=== PATIENT | male | born 1945 | race Caucasian/White ===

== ENCOUNTER → 2017-11-03 | Day surgery (SDC) | payer MEDICARE, OTHER ==
[2017-10-31 13:05] LABS: BASOPHILS % 0.4 % (0.0-1.0); EOSINOPHILS # (AUTO) 0.2 (0.0-0.4); EOSINOPHILS % 1.7 % (0.0-6.0); HEMATOCRIT 44.6 % (38.2-49.6); HEMOGLOBIN 14.6 g/dL (14.0-18.0); LYMPHOCYTES # (AUTO) 2.4 (1.0-3.2); LYMPHOCYTES % 25.5 % (18.0-39.1); MEAN CORPUSCULAR HEMOGLOBIN 29.8 pg (28-32); MEAN CORPUSCULAR HGB CONC 32.7 g/dL (31-35); MONOCYTES % 10.4 % (4.4-11.3); NEUTROPHILS # (AUTO) 5.8 (2.1-6.9); NEUTROPHILS % 61.5 % (38.7-80.0); PLATELET COUNT 196 x10e3/uL (140-360)
[~2017-11-03] MED LIST: ADVAIR 250-501 EACH INH; ADVICOR PO; BUPIVACAINE HCL 0.5% INJ 30 ML VIAL INJ ONE; CEFAZOLIN SOD 1 GM VIAL ONE; CELEBREX200 MG PO; ELMIRON100 MG PO; FENTANYL CITRATE/PF 100MCG/2 ML INJ ONE; FLOMAX0.4 MG PO; FLONASE; HYDROCODON-ACE1 EAC8 PO; LIDOCAINE 1% W/EPINEPHRINE 20 ML VIAL ONE; LIDOCAINE HCL 1% LOCAL INJ 20 ML VIAL ONE; LIDOCAINE HCL 2% LOCAL INJ 5 ML SDV VIAL INJ ONE; MIDAZOLAM HCL 2 MG/2 ML VIAL ONE; MUPIROCIN 2% OINT 22 GM TUBE ONE; PLAVIX75 MG PO; PRINZIDE 20-121 EACH PO; PROPOFOL IV EMULSION 10 MG/ML 20 ML VIAL ONE; SINGULAIR10 MG PO; TOPROL XL50 MG PO; ZOFRAN ODT4 MG SL
--- OUTSIDE RECORDS SUMMARY | 2017-11-03 05:33 | XMS REPORT | Clinical Summary ---
Author Author [facility] Address Unknown Phone Unavailable Care Team Providers Care Receivable Executive Name Role Phone Aileen Engel MD PCP Allergies No Known Allergies Current Medications Prescription Sig. Disp. Refills Start End Date Status Date clopidogrel (PLAVIX) 75 1 tablet daily. 08/16/19 Active mg tablet 18 lisinopril-hydrochlorothi 1 tablet daily. 08/16/19 Active azide 18 (PRINZIDE,ZESTORETIC) 20-12.5 mg per tablet TOPROL XL 50 mg 24 hr 1 tablet daily. 08/16/19 Active tablet 18 celecoxib (CeleBREX) 200 1 capsule daily. 08/16/19 Active MG capsule 18 montelukast (SINGULAIR) 1 tablet daily. 08/16/19 Active 10 mg tablet 18 fluticasone (FLONASE) 50 1 spray 2 (two) times a 08/17/19 Active mcg/actuation nasal spray day. 18 colestipol (COLESTID) 1 1 tablet 2 (two) times a 08/06/19 Active gram tablet day. 18 ELMIRON 100 mg capsule 1 capsule 2 (two) times a 10/02/19 Active day. 18 atorvastatin (LIPITOR) 10 1 tablet daily. 08/16/19 Active MG tablet 18 TRICOR 145 mg tablet 1 tablet daily. 08/16/19 Active 18 XOPENEX HFA 45 2 puffs 2 (two) times a 09/14/19 Active mcg/actuation inhaler day. 18 aspirin (ECOTRIN) 81 MG Take 81 mg by mouth Active enteric coated tablet daily. Bifidobacterium infantis Take 1 tablet by mouth Active (ALIGN ORAL) daily. acetaminophen (TYLENOL) Take 500 mg by mouth as Active 500 MG tablet needed for mild pain. Active Problems Problem Noted Date Essential tremor 10/07/2017 Heart disease 10/07/2017 Encounters Date Type Specialty Care Team Description 10/07/2017 Office Visit Neurology Pat Britton MD Essential tremor (Primary Dx); Heart disease 10/07/2017 Orders Only Neurology Gina Ham MA Essential tremor (Primary Dx) 11/06/2016 Hospital Radiology Flavia Engel MD Back pain, unspecified Encounter back location, unspecified back pain laterality, unspecified chronicity 11/03/2016 Transcribe Physical Therapy Flavia Engel MD Orders 11/02/2016 Procedure Pass Radiology 11/02/2016 Transcribe Physical Therapy Flavia Engel MD Low back pain, Orders unspecified back pain laterality, unspecified chronicity, with sciatica presence unspecified (Primary Dx) 11/02/2016 Transcribe Access Flavia Engel MD Back pain, unspecified Orders back location, unspecified back pain laterality, unspecified chronicity (Primary Dx) after 11/02/2016 Family History Medical History Relation Name Comments Heart disease Father Hypertension Father Tremor Father Diabetes Mother Hypertension Mother Parkinsonism Paternal Grandmother Relation Name Status Comments Father (Age 61) Mother (Age 71) Paternal Grandmother Social History Tobacco Use Types Packs/Day Years Used Date Former Smoker Quit: 1999 Smokeless Tobacco: Never Used Alcohol Use Drinks/Week oz/Week Comments No Sex Assigned at Date Recorded Not on file Last Filed Vital Signs Vital Sign Reading Time Taken Blood Pressure 127/85 10/07/2017 8:31 AM CDT Pulse 67 10/07/2017 8:31 AM CDT Temperature - - Respiratory Rate - - Oxygen Saturation - - Inhaled Oxygen - - Concentration Weight 121 kg (266 lb) 10/07/2017 8:31 AM CDT Height 177.8 cm (5' 10") 10/07/2017 8:31 AM CDT Body Mass Index 38.17 10/07/2017 8:31 AM CDT Plan of Treatment Health Maintenance Due Date Last Done Comments COLON CANCER SCREENING 12/06/1993 SHINGRIX VACCINE (#1) 12/06/1993 ZOSTER VACCINE 2003 PNEUMOCOCCAL 12/06/2008 POLYSACCHARIDE VACCINE AGE 65 AND OVER PNEUMOCOCCAL-13 12/06/2008 INFLUENZA VACCINE 01/18/2018 Results * MRI Lumbar Spine Wo Contrast (11/06/2016 3:24 PM) Specimen Performing Laboratory [facility] [address] [place] [address] Narrative EXAMINATION: MRI LUMBAR SPINE WO CONTRAST CLINICAL HISTORY: M54.9 Dorsalgiaunspecified, M54.9 COMPARISON:None TECHNIQUE: Multiplanar multisequence noncontrast enhanced examination was performed of the Lumbar spine. FINDINGS: There is no acute osseous abnormality. There is no evidence of fracture. A Schmorl's node is noted in the inferior L3 endplate with minimal edema. There is diffuse fusiform aneurysmal dilatation of the aorta measuring up to 4.8 cm. The distal spinal cord and conus are intact. There is grade 1 anterolisthesis of L4. There is diffuse degenerative endplate changes with Schmorl's nodes at all levels from T10 through L3. Axial images through the disc spaces demonstrate the following: L1-L2: There is complete loss of disc height. There is diffuse disc bulge with mild to moderate lateral recess narrowing and mild canal stenosis. There is minimal narrowing of the inferior foramina. L2-L3: There is diffuse disc bulge with minimal narrowing of the thecal sac and lateral recesses. The foramina are patent. L3-L4: There is diffuse disc bulge and facet hypertrophy with mild canal and mild to moderate lateral recess narrowing. Facet spurring and this osteophyte complex results in mild bilateral foraminal narrowing. L4-L5: There is grade 1 anterolisthesis of L4 with diffuse disc bulge and significant facet and ligament flavum hypertrophy. There is very severe left lateral recess narrowing and slightly less severe right lateral recess and canal stenosis. Correlate for encroachment of the descending left L5 nerve root. Facet spurring and this osteophyte complex results in at least mild to moderate foraminal stenosis, bilaterally. L5-S1: There is disc bulge with minimal effacement of the thecal sac without significant stenosis. There is mild indentation into the inferior neural foramina without stenosis. No significant posterior disc disease, spinal canal or neural foraminal stenosis at other visualized levels. IMPRESSION: There is multilevel spondylosis most prominent at L4-L5 where there is significant canal and bilateral lateral recess narrowing, most prominent on the left. Correlate for encroachment of the cauda equina nerve roots, especially the descending left L5 nerve root. Given the morphology of the facets, disc and anterolisthesis changes , there is likely some degree of instability at this level. Other levels of less significant spondylosis are detailed above. [id number] Procedure Note Hm Interface, Radiology Results Incoming - 11/06/2016 3:35 PM CDT EXAMINATION: MRI LUMBAR SPINE WO CONTRAST CLINICAL HISTORY: M54.9 Dorsalgia unspecified, M54.9 COMPARISON: None TECHNIQUE: Multiplanar multisequence noncontrast enhanced examination was performed of the Lumbar spine. FINDINGS: There is no acute osseous abnormality. There is no evidence of fracture. A Schmorl's node is noted in the inferior L3 endplate with minimal edema. There is diffuse fusiform aneurysmal dilatation of the aorta measuring up to 4.8 cm. The distal spinal cord and conus are intact. There is grade 1 anterolisthesis of L4. There is diffuse degenerative endplate changes with Schmorl's nodes at all levels from T10 through L3. Axial images through the disc spaces demonstrate the following: L1-L2: There is complete loss of disc height. There is diffuse disc bulge with mild to moderate lateral recess narrowing and mild canal stenosis. There is minimal narrowing of the inferior foramina. L2-L3: There is diffuse disc bulge with minimal narrowing of the thecal sac and lateral recesses. The foramina are patent. L3-L4: There is diffuse disc bulge and facet hypertrophy with mild canal and mild to moderate lateral recess narrowing. Facet spurring and this osteophyte complex results in mild bilateral foraminal narrowing. L4-L5: There is grade 1 anterolisthesis of L4 with diffuse disc bulge and significant facet and ligament flavum hypertrophy. There is very severe left lateral recess narrowing and slightly less severe right lateral recess and canal stenosis. Correlate for encroachment of the descending left L5 nerve root. Facet spurring and this osteophyte complex results in at least mild to moderate foraminal stenosis, bilaterally. L5-S1: There is disc bulge with minimal effacement of the thecal sac without significant stenosis. There is mild indentation into the inferior neural foramina without stenosis. No significant posterior disc disease, spinal canal or neural foraminal stenosis at other visualized levels. IMPRESSION: There is multilevel spondylosis most prominent at L4-L5 where there is significant canal and bilateral lateral recess narrowing, most prominent on the left. Correlate for encroachment of the cauda equina nerve roots, especially the descending left L5 nerve root. Given the morphology of the facets, disc and anterolisthesis changes , there is likely some degree of instability at this level. Other levels of less significant spondylosis are detailed above. [facility]-[id number] after 11/02/2016 Insurance Payer Benefit Subscriber ID Type Phone Address Plan / Group MEDICARE MEDICARE xxxxxxxxxx Medicare [place], [place] PART A AND B xxxxxxxxx [facility] [address] [place], [place] Home: [phone]
--- NOTE | 2017-11-03 12:52 | Operative Report ---
DATE OF PROCEDURE: November 03, 2017 PREOPERATIVE DIAGNOSIS: 1. Mucous cyst left long finger distal interphalangeal joint. 2. 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 POSTOPERATIVE DIAGNOSES: 1. Mucous cyst left long finger distal interphalangeal joint. 1. 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 OPERATIVE PROCEDURES: 1. Excision of mucous cyst left long finger distal interphalangeal joint. 2. Arthrotomy with removal of osteophytes left long finger distal interphalangeal joint. ANESTHESIA: MAC/local. INDICATIONS: The patient is a 71-year-old right hand dominant male who has a symptomatic mucous cyst with nail plate grooving and symptomatic osteoarthritis with Heberden's nodes left long finger DIP joint. The risks, benefits and alternatives of treatment were discussed with the patient. He is prepared to undergo the procedures outlined. DETAILS OF PROCEDURE: Patient was marked preoperatively in the holding area. He was brought to the operating theater, and after the induction of adequate IV sedation, he was prepped and draped in a supine position. A time out was performed. A digital block consisting of a 50:50 mixture of 1% Xylocaine plain and 1/2 percent Marcaine plain was used to infiltrate around the base of the left long finger. A total of 8 mL was used. A Tourni-Cot was then placed around the base of the finger. The Y-shaped incision was marked out over the DIPJ joint of the long finger. The incision was made through the skin and the subcutaneous tissues. Venous tributaries were controlled with the bipolar cautery. The skin flaps were elevated off the extensor mechanism and dissected distally to the area of the germinal matrix. The cyst was encountered on the radial side of the long finger, and the cyst was dissected down to the level of the DIPJ joint where it was removed in its entirety. On the radial and ulnar sides of the DIP joint, the extensor tendon mechanism was incised over the osteophytes, and using a Monument elevator it was dissected medially, taking care to leave the substance of the tendon intact. Once the Heberden's nodes had been fully exposed, a rongeur was used to remove them until it was smooth. The wound was irrigated with bacteriostatic saline, and then the skin flaps were closed with 5-0 nylon in an interrupted horizontal mattress fashion. Bactroban ointment, Xeroform gauze and a sterile dressing were applied. A foam aluminum splint was added for protection and held in place with 1-inch Coban. The Tourni-Cot was removed, the finger pinked up nicely, and the patient was returned to the recovery room in satisfactory condition and discharged with a postoperative instruction sheet as well as a followup appointment. Job#: [id number] EV
== END | disposition home or self-care (01) ==
LOC: OR 05:31
PROVIDERS: ATTEND Plastic Surgery
DX: M15.1 Heberden's nodes (with arthropathy) (principal); L72.8 Other follicular cysts of the skin and subcutaneous tissue; I10 Essential (primary) hypertension; N20.0 Calculus of kidney; K44.9 Diaphragmatic hernia without obstruction or gangrene; K57.90 Diverticulosis of intestine, part unspecified, without perforation or abscess without bleeding; J44.9 Chronic obstructive pulmonary disease, unspecified; I69.398 Other sequelae of cerebral infarction; H54.40 Blindness, one eye, unspecified eye; I25.10 Atherosclerotic heart disease of native coronary artery without angina pectoris; Z01.812 Encounter for preprocedural laboratory examination; Z79.02 Long term (current) use of antithrombotics/antiplatelets; Z95.5 Presence of coronary angioplasty implant and graft
CPT/HCPCS: 26210; 36415; 85025; 88304; J0690; J2001 ×2; J2250